=== PATIENT | male | born 1960 | race Caucasian/White ===

== ENCOUNTER 2021-04-02 08:06 | Emergency (ER) | payer OTHER ==
[~2021-04-02] VITALS: Ht 180.3 cm; Wt 93.9 kg
[2021-04-02 08:36] LABS: ABSOLUTE EOSINOPHILS 0.7 thou/uL (0.0-0.7); ABSOLUTE LYMPHOCYTES 1.2 thou/uL (0.8-5.3); ABSOLUTE MONOCYTES 0.7 thou/uL (0.0-1.2); ABSOLUTE NEUTROPHILS 10.3 thou/uL (1.6-8.1); BASOPHILS 0.2 %; EOSINOPHILS 5.6 %; HEMOGLOBIN 16.7 gm/dL (14.0-18.0); LYMPHOCYTES 9.4 %; MCH 32.5 pg (26.0-34.0); MCHC 34.7 g/dL (28.0-37.0); MCV 93.6 fL (80.0-100.0); MONOCYTES 5.2 %; MPV 8.5 fl. (7.2-11.1); NUCLEATED RBCS 0 /100WBC; PLATELET COUNT* 234 thou/uL (150-400); POLYS 79.6 %; RBC 5.13 mil/uL (4.50-6.00); RDW-CV 12.1 % (10.5-14.5)
[2021-04-02 08:44] LABS: CALCIUM 8.9 mg/dL (8.5-10.1); CREATININE 1.3 mg/dL (0.6-1.3); POTASSIUM 4.6 mmol/L (3.5-5.1)
[2021-04-02 08:48] LABS: ALBUMIN 3.3 g/dL (3.4-5.0); TOTAL BILIRUBIN 0.9 mg/dL (<0.1-1.0); TOTAL PROTEIN 6.8 g/dL (6.4-8.2)
--- NOTE | 2021-04-02 10:02 | EKG ---
[place] [address] ELECTROCARDIOGRAM REPORT Name: SAL WEIR Room: [facility]#: [id number] Admission: 04/02/21 Attend Phys: Discharge: Date of : 64 Date of Service: 04/02/21808 Report #: [id number] THIS REPORT FOR: //name// [facility] ED Test Date: 2021-04-02 Test Time: 08:09:07 Pat Name: SAL WEIR Department: Room: Gender: Machine Turner: : 1960 Requested By: bS Perry Order Number: [id number] MD: Ulises Durán Measurements Intervals Gaston Rate: 59 P: 19 WY: 168 QRS: 40 QRSD: 105 T: 25 QT: 417 QTc: 414 Interpretive Statements Sinus rhythm No previous ECG available for comparison Electronically Signed On 04-02-2021 10:02:02 CDT by Ulises Durán [email or web address] <ELECTRONICALLY SIGNED> By: Ulises Durán MD, [facility] 04/02/21 1002 8 08 Ulises Durán MD, FACC /EPI
[2021-04-02] MEDS ORDERED: LIPITOR40 MG PO (10:58)
[2021-04-02] MEDS ORDERED: NORVASC5 MG PO (10:59)
[2021-04-02] MEDS ORDERED: TELMISARTAN-HC1 EAC1 PO (10:59)
[2021-04-02] MEDS ORDERED: ESCITALOPRA5 MG/5 ML PO (11:00)
[2021-04-02] MEDS ORDERED: TESTOSTERONE200 MG INJECTION (11:00)
[2021-04-02] MEDS ORDERED: ASA81BEC PO (11:01)
[2021-04-02] MEDS ORDERED: ZOFRAN ODT4 MG DISSOLVE (11:20)
[2021-04-02] MEDS ORDERED: HYDROCODON-ACE1 EAC7 PO (11:20)
[2021-04-02] MEDS ORDERED: AUGMENTIN 875-1 EACH PO (11:20)
[2021-04-02 11:29] VITALS: BP 155/76
== END 2021-04-02 11:30 | disposition home or self-care (01) ==
LOC: M.ERS 08:06
PROVIDERS: Emergency Medicine Emergency Medical Services
DX: K57.32 Diverticulitis of large intestine without perforation or abscess without bleeding (principal); E78.5 Hyperlipidemia, unspecified; I10 Essential (primary) hypertension; Z79.82 Long term (current) use of aspirin; Z79.899 Other long term (current) drug therapy